=== PATIENT | female | born 1995 | race Caucasian/White ===

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

== ENCOUNTER → 2017-03-21 | Outpatient (CLI) | payer OTHER ==
[2017-03-21 12:55] LABS: BLOOD UREA NITROGEN 10 mg/dl (7-18); BUN/CREATININE RATIO 12.8 (10-20); CALCIUM 8.9 mg/dl (8.5-10.1); CARBON DIOXIDE 25 mmol/L (21-32); CHLORIDE 105 mmol/L (98-107); CREATININE 0.74 mg/dl (0.60-1.20); GLUCOSE 114 mg/dl (70-99); POTASSIUM 3.9 mmol/L (3.5-5.1); SODIUM 135 mmol/L (136-145)
== END | disposition home or self-care (01) ==
LOC: C.LABPBG 10:56
PROVIDERS: ATTEND Family Medicine
DX: E28.2 Polycystic ovarian syndrome (principal); E16.1 Other hypoglycemia

== ENCOUNTER 2021-01-16 09:10 | Inpatient (IN) ==
[2021-01-16] MEDS ORDERED: SODIUM CHLORIDE 0.9% 1000ML 2,000 ML IV ONE (09:29)
[2021-01-16] MEDS ORDERED: ACETAMINOPHEN 500 MG TAB PO STA (09:30)
[2021-01-16] MEDS ORDERED: dexAMETHasone**PF** 10 MG/ML VIAL IV ONE ×2 (09:32→12:30)
--- NOTE | 2021-01-16 09:32 | Emergency Department Note ---
Impression & Plan COVID-19, Hypoxia ED Provider Note NAME: LUIS NO AGE: 25 SEX: F : 1995 ARRIVES VIA: Walk-In INFORMANT: Patient ED PROVIDER(S): True Petersen DO. CHIEF COMPLAINT: Covid positive and short of breath HPI: Patient is a 25-year-old female who is unvaccinated who presents to the ER for shortness of breath. She notes her symptoms started last Sebastian with nausea and upset stomach. Progressed to a cough as well as loss of taste and smell. She does feel short of breath like she cannot take a deep breath. She was checking her pulse ox at home as she is positive for Covid and was in the 80s. She denies any belly pain, nausea, vomiting, or diarrhea currently. No dysuria, urgency, or frequency. No other exacerbating or remitting factors. She has had persistent fevers for the past 3 to 4 days. ROS: See above HPI for pertinent positives & negatives. A total of 10 systems reviewed and were otherwise negative. PAST MEDICAL HISTORY:See Below PAST SURGICAL HISTORY:See Below FAMILY HISTORY:See Below SOCIAL HISTORY:See Below HOME MEDICATIONS:See Below ALLERGIES:See Below VITALS:See Below PHYSICAL EXAMINATION: GENERAL: Sitting up in bed, alert, with a persistent cough EYE EXAM: normal conjunctiva. PERRL and EOM's grossly intact. OROPHARYNX: no exudate, no erythema, lips, buccal mucosa, and tongue normal and mucous membranes are moist NECK: supple, no nuchal rigidity, no adenopathy, non-tender LUNGS: Clear to auscultation. Normal chest wall mechanics HEART: Tachycardic, S1 normal and S2 normal ABDOMEN: abdomen soft, non-tender, normo-active bowel sounds, no masses, no rebound or guarding. BACK: Back is symmetrical on inspection and there is no deformity, no midline tenderness, no CVA tenderness. SKIN: no rashes and no bruising UPPER EXTREMITIES: upper extremities are grossly normal. LOWER EXTREMITIES: No pitting edema. Calves are equal bilateral NEURO EXAM: Normal sensorium, cranial nerves II-XII grossly intact, normal speech, no gross weakness of arms, no gross weakness of legs. MEDICAL DECISION MAKING: Patient is a 25-year-old female who presents the ER for the above-stated complaint. She is Covid positive. IV was established blood work was obtained. She was hypertensive, tachycardic, and febrile as well as hypoxic. IV was established blood work was obtained. Labs show no significant leukocytosis or anemia. D-dimer was elevated at 1400. BMP with LFTs bilirubin troponin was unremarkable. was negative. Covid was positive. Chest x-ray with bilateral infiltrates. Patient was updated bedside. She was discussed with the hospitalist admitted for further work-up. She was given IV fluids and steroids. Discussed with Pt concerning signs and symptoms to watch out for. Pt was instructed to follow up with their PCP and discussed with the patient their option to return to the ED at anytime for persistent or worsening symptoms. The appropriate anticipatory guidance and out-patient management, including indications for return to the emergency department, were explained at length to the patient and understood. Triage Nursing notes reviewed. Limited review of prior medical records performed Vital Signs: reviewed and remarkable for tachycardic, febrile and hypoxic Differential diagnosis: Differential diagnoses includes but is not limited to pneumonia, bronchitis, COPD/Asthma exacerbation, pneumothorax, pulmonary embolism, congestive heart failure, acute coronary syndrome ER treatment provided: See below Diagnostics interpreted by me: ECG: Sinus tachycardia rate of 118 Normal axis T wave inversion in the inferior leads QTC 423 Cardiac Monitoring: An order was placed for continuous cardiac monitoring. The monitor shows a rate of 121 with sinus rhythm. Laboratory studies: As stated above and show below. Imaging studies: Chest x-ray with bilateral infiltrates Consultation(s): Discussed with Dr. Jeff Mosqueda for further evaluation Procedures: none Critical Care: I have personally spent 33 minutes of critical care time in the direct management of this patient. This includes bedside care, interpretation of diagnostic studies, and testing, discussion with consultants, patient, and family members, and other required patient management activities. This 33 minutes is in excess of all separately billable procedures. Past Med/Surg History Medical History Asthma Depression with anxiety Heartburn Migraine PCOS (polycystic ovarian syndrome) Prediabetes Vitamin D deficiency Surgical History H/O wisdom tooth extraction Family History Grandfather (Paternal) Colorectal cancer Father , 2019 Hypertrophic cardiomyopathy Hypertension Mother Anxiety Migraine Dyslipidemia Grandmother (Paternal) Graves disease Other Asthma Clotting disorder Diabetes Denies family history of Ovarian cancer Breast cancer Uterine cancer Social History Smoking Status: Never smoker Tobacco Type: E-cigarettes / Vaping Age Started Using Tobacco: 24; Age Quit Using Tobacco: 24; Cigarettes Per Day: vaped for a few months; Second Hand Exposure: No; Hx Alcohol Use: Yes Alcohol type: beer and hard liquor Alcohol Intake Frequency: 2-4 x/Month Hx Substance Use: No Preferred Language: [place] Visual Impairment: No Limitations Hearing Ability: Normal Recruiter Specialist Required: No Beliefs That Will Affect Care: None marital status: Single Current Living Situation: Significant Other current occupational status: employed current occupation: [employer] How many Children do You have: 0 Feels Safe at Home: Yes Childhood Exposure to Second-Hand Smoke: No Diet Comment: does not follow a diet caffeine: Yes (sometimes) during the past year weight has: remained stable Dental Care, Regularly: No Physical Activity Frequency: 3-4 Times per Week Seatbelt Use: always Sunscreen Use: No Allergies Allergies Allergy/AdvReac Type Severity Reaction Status Date / Time No Known Allergies Allergy Verified 01/16/21 10:48 Home Meds Home Medications Medication Instructions Recorded Confirmed No Known Home Medications 01/16/21 01/16/21 Results & Data (ED) Vital Signs Vital Signs - 24 hr 01/16/21 09:13 01/16/21 09:46 01/16/21 09:51 Temperature 39.0 C H 39.4 C H Temperature Source Oral Oral Pulse Rate 133 H 118 H Pulse Rate [Apical] 119 H Pulse Rhythm Regular Regular Pulse Rhythm [Apical] Regular Pulse Strength Normal Pulse Strength [Apical] Normal Respiratory Rate 20 20 Respiratory Effort / Characteristics Non-Labored Spontaneous Non-Labored Spontaneous Respiratory Depth Normal Normal Respiratory Pattern Regular Regular Blood Pressure 137/84 Blood Pressure [Right Arm] 119/77 Blood Pressure Mean 101 Blood Pressure Mean [Right Arm] 91 Blood Pressure Position Sitting Blood Pressure Position [Right Arm] Semi-fowlers Pulse Oximetry 89 L 87 L 95 Oxygen Delivery Method Room Air Room Air Nasal Cannula Nasal Cannula Oxygen Flow Rate 0 3 Sepsis Recent Fever Within 48 Hours Yes Sepsis New/Unexplained Change in Mental Status No Sepsis Action Taken by Nursing Physician Notified Oxygen Flow Rate - Titration 3 Pulse Oximetry Post Tiitration 95 01/16/21 10:42 01/16/21 12:07 Temperature Temperature Source Pulse Rate Pulse Rate [Apical] 124 H Pulse Rhythm Pulse Rhythm [Apical] Regular Pulse Strength Pulse Strength [Apical] Normal Respiratory Rate 22 Respiratory Effort / Characteristics Non-Labored Spontaneous Non-Labored Spontaneous Respiratory Depth Normal Normal Respiratory Pattern Regular Regular Blood Pressure Blood Pressure [Right Arm] 155/87 H Blood Pressure Mean Blood Pressure Mean [Right Arm] 109 Blood Pressure Position Blood Pressure Position [Right Arm] Sitting Pulse Oximetry 94 Oxygen Delivery Method Nasal Cannula Nasal Cannula Oxygen Flow Rate 3 4 Sepsis Recent Fever Within 48 Hours Sepsis New/Unexplained Change in Mental Status Sepsis Action Taken by Nursing Oxygen Flow Rate - Titration Pulse Oximetry Post Tiitration Laboratory Data Result diagrams: 01/16/21 10:07 01/16/21 10:07 Lab Results 01/16/21 01/16/21 01/16/21 Range/Units 10:07 10:07 10:07 WBC 5.64 (4.8-10.8) K/uL RBC 4.78 (4.2-5.4) M/uL Hgb 14.2 (12.0-16.0) g/dL Hct 40.9 (37-47) % MCV 85.6 (80-100) fL MCH 29.7 (25-34) pg MCHC 34.7 (32-36) g/dL RDW Std Deviation 41.9 (36.4-46.3) fL RDW Coeff of Erasmo 13.2 (11.5-14.5) % Plt Count 169 (130-400) K/uL MPV 10.5 H (7.4-10.4) fL Immature Gran % (Auto) 0.5 % Neut % (Auto) 81.0 % Lymph % (Auto) 15.1 % Sandoval % (Auto) 3.2 % Eos % (Auto) 0.0 % Baso % (Auto) 0.2 % Neut # (Auto) 4.57 (1.4-6.5) K/uL Lymph # (Auto) 0.85 L (1.2-3.4) K/uL Sandoval # (Auto) 0.18 (0.11-0.59) K/uL Eos # (Auto) 0.00 (0-0.5) K/uL Baso # (Auto) 0.01 (0-0.2) K/uL Immature Gran # (Auto) 0.03 H (0.00-0.02) K/uL APTT 28.8 (21.0-31.0) Seconds PTT Ratio 1.1 D-Dimer (0-500) ug/L FEU Sodium 136 (136-145) mmol/L Potassium 3.9 (3.5-5.1) mmol/L Chloride 102 (98-107) mmol/L Carbon Dioxide 25 (21-32) mmol/L Anion Gap 9.0 (3-11) BUN 8 (7-18) mg/dl Creatinine 0.70 (0.6-1.2) mg/dl Est Cr Clr Drug Dosing 121.6 ml/min Est GFR ( Amer) 141.5 ml/min Est GFR (Non-Af Amer) 122.1 ml/min BUN/Creatinine Ratio 11.1 (10-20) Glucose 147 H (70-99) mg/dl Calcium 8.6 (8.5-10.1) mg/dl Total Bilirubin 0.3 (0.2-1) mg/dl AST 24 (15-37) U/L ALT 33 (12-78) U/L Alkaline Phosphatase 92 (45-117) U/L Troponin I < 0.015 (0-0.045) ng/ml C-Reactive Protein (0-0.29) mg/dl Total Protein 7.4 (6.4-8.2) gm/dl Albumin 3.4 (3.4-5.0) gm/dl Globulin 4.0 (2.5-4.0) gm/dl Albumin/Globulin Ratio 0.8 L (0.9-2) Lipase 157 (73-393) U/L POC Ur Test (NEG) COVID-19 Eval Order SARS-CoV-2 (PCR) (Negative) 01/16/21 01/16/21 01/16/21 Range/Units 10:07 10:07 10:07 WBC (4.8-10.8) K/uL RBC (4.2-5.4) M/uL Hgb (12.0-16.0) g/dL Hct (37-47) % MCV (80-100) fL MCH (25-34) pg MCHC (32-36) g/dL RDW Std Deviation (36.4-46.3) fL RDW Coeff of Erasmo (11.5-14.5) % Plt Count (130-400) K/uL MPV (7.4-10.4) fL Immature Gran % (Auto) % Neut % (Auto) % Lymph % (Auto) % Sandoval % (Auto) % Eos % (Auto) % Baso % (Auto) % Neut # (Auto) (1.4-6.5) K/uL Lymph # (Auto) (1.2-3.4) K/uL Sandoval # (Auto) (0.11-0.59) K/uL Eos # (Auto) (0-0.5) K/uL Baso # (Auto) (0-0.2) K/uL Immature Gran # (Auto) (0.00-0.02) K/uL APTT (21.0-31.0) Seconds PTT Ratio D-Dimer (0-500) ug/L FEU Sodium (136-145) mmol/L Potassium (3.5-5.1) mmol/L Chloride (98-107) mmol/L Carbon Dioxide (21-32) mmol/L Anion Gap (3-11) BUN (7-18) mg/dl Creatinine (0.6-1.2) mg/dl Est Cr Clr Drug Dosing ml/min Est GFR ( Amer) ml/min Est GFR (Non-Af Amer) ml/min BUN/Creatinine Ratio (10-20) Glucose (70-99) mg/dl Calcium (8.5-10.1) mg/dl Total Bilirubin (0.2-1) mg/dl AST (15-37) U/L ALT (12-78) U/L Alkaline Phosphatase (45-117) U/L Troponin I (0-0.045) ng/ml C-Reactive Protein 11.30 H (0-0.29) mg/dl Total Protein (6.4-8.2) gm/dl Albumin (3.4-5.0) gm/dl Globulin (2.5-4.0) gm/dl Albumin/Globulin Ratio (0.9-2) Lipase (73-393) U/L POC Ur Test (NEG) COVID-19 Eval Order Covid19 at [facility] SARS-CoV-2 (PCR) POSITIVE A* (Negative) 01/16/21 01/16/21 Range/Units 11:55 12:05 WBC (4.8-10.8) K/uL RBC (4.2-5.4) M/uL Hgb (12.0-16.0) g/dL Hct (37-47) % MCV (80-100) fL MCH (25-34) pg MCHC (32-36) g/dL RDW Std Deviation (36.4-46.3) fL RDW Coeff of Erasmo (11.5-14.5) % Plt Count (130-400) K/uL MPV (7.4-10.4) fL Immature Gran % (Auto) % Neut % (Auto) % Lymph % (Auto) % Sandoval % (Auto) % Eos % (Auto) % Baso % (Auto) % Neut # (Auto) (1.4-6.5) K/uL Lymph # (Auto) (1.2-3.4) K/uL Sandoval # (Auto) (0.11-0.59) K/uL Eos # (Auto) (0-0.5) K/uL Baso # (Auto) (0-0.2) K/uL Immature Gran # (Auto) (0.00-0.02) K/uL APTT (21.0-31.0) Seconds PTT Ratio D-Dimer 1450 H* (0-500) ug/L FEU Sodium (136-145) mmol/L Potassium (3.5-5.1) mmol/L Chloride (98-107) mmol/L Carbon Dioxide (21-32) mmol/L Anion Gap (3-11) BUN (7-18) mg/dl Creatinine (0.6-1.2) mg/dl Est Cr Clr Drug Dosing ml/min Est GFR ( Amer) ml/min Est GFR (Non-Af Amer) ml/min BUN/Creatinine Ratio (10-20) Glucose (70-99) mg/dl Calcium (8.5-10.1) mg/dl Total Bilirubin (0.2-1) mg/dl AST (15-37) U/L ALT (12-78) U/L Alkaline Phosphatase (45-117) U/L Troponin I (0-0.045) ng/ml C-Reactive Protein (0-0.29) mg/dl Total Protein (6.4-8.2) gm/dl Albumin (3.4-5.0) gm/dl Globulin (2.5-4.0) gm/dl Albumin/Globulin Ratio (0.9-2) Lipase (73-393) U/L POC Ur Test NEG (NEG) COVID-19 Eval Order SARS-CoV-2 (PCR) (Negative) Administered Medications Remdesivir 200 mg/ Sodium (Chloride) 250 mls @ 125 mls/hr IV ONE ONE; Protocol Stop: 01/16/21 13:44 Last Admin: 01/16/21 12:00 Dose: 125 mls/hr Documented by: [id number] Discontinued Medications Acetaminophen (Acetaminophen 500 Mg Tab) 1,000 mg PO NOW STA Stop: 01/16/21 09:31 Last Admin: 01/16/21 10:28 Dose: 1,000 mg Documented by: [id number] Dexamethasone Sodium Phosphate (DexamethasonePf 10 Mg/Ml Vial) 6 mg IV NOW ONE Stop: 01/16/21 09:33 Last Admin: 01/16/21 10:29 Dose: 6 mg Documented by: [id number] Sodium Chloride (Nss 1000ml) 2,000 mls @ 999 mls/hr IV .Q2H1M ONE Stop: 01/16/21 11:29 Last Infusion: 01/16/21 12:42 Dose: 0 mls/hr Documented by: [id number] Admin: 01/16/21 10:25 Dose: 999 mls/hr Documented by: [id number] Imaging Data Radiologist's Impression: Chest X-Ray 01/16/21 09:29 XR chest 1V portable INDICATION: Atypical chest pain, history of pneumonia.. TECHNIQUE: Single frontal radiograph of the chest was obtained. Comparison: Comparison is made to chest 2 views 01/15/2021 FINDINGS: No lines and tubes are seen. The cardiomediastinal silhouette is normal. Redemonstration of airspace opacities in the right upper lobe. Left greater than right lung base airspace opacities are increased from prior exam. No evidence of pleural effusion or pneumothorax. IMPRESSION: Interval worsening of previously noted airspace opacities compatible with multifocal pneumonia. ACT 112: Negative or not required by law. Electronically signed by: Genaro Arceo M.D. 01/16/2021 10:27 AM Discharge Plan Visit Data Chief Complaint: Shortness of Breath/Dyspnea Stated Complaint: COVID POSITIVE,SX WORSENING,OXYGEN LEVEL LOW ED Provider: True Petersen Discharge Problem: COVID-19, Hypoxia Forms Stand Alone Forms: My [employer] Prescriptions Prescriptions: No Action No Known Home Medications RF: 0 Referrals Referrals: Marni Haley DO [Primary Care Provider] -
[2021-01-16 10:17] LABS: Basophils # (auto) 0.01 K/uL (0-0.2); Basophils % (auto) 0.2 %; Hematocrit (blood only) 40.9 % (37-47); Hemoglobin 14.2 g/dL (12.0-16.0); Immature Granulocytes # (auto) 0.03 K/uL (0.00-0.02); Immature Granulocytes % (auto) 0.5 %; Lymphocytes # (auto) 0.85 K/uL (1.2-3.4); Lymphocytes % (auto) 15.1 %; Mean Corpuscular Hemoglobin 29.7 pg (25-34); Mean Corpuscular Hgb Conc 34.7 g/dL (32-36); Mean Corpuscular Volume 85.6 fL (80-100); Mean Platelet Volume 10.5 fL (7.4-10.4); Monocytes # (auto) 0.18 K/uL (0.11-0.59); Monocytes % (auto) 3.2 %; Neutrophils # (auto) 4.57 K/uL (1.4-6.5); Platelet Count 169 K/uL (130-400); RDW Coefficient of Variation 13.2 % (11.5-14.5); RDW Standard Deviation 41.9 fL (36.4-46.3); Red Blood Count 4.78 M/uL (4.2-5.4); White Blood Count 5.64 K/uL (4.8-10.8)
[2021-01-16 10:28] LABS: Partial Thromboplastin Ratio 1.1; Partial Thromboplastin Time 28.8 Seconds (21.0-31.0)
--- NOTE | 2021-01-16 10:28 | XRay Report ---
XR chest 1V portable INDICATION: Atypical chest pain, history of pneumonia.. TECHNIQUE: Single frontal radiograph of the chest was obtained. Comparison: Comparison is made to chest 2 views 01/15/2021 FINDINGS: No lines and tubes are seen. The cardiomediastinal silhouette is normal. Redemonstration of airspace opacities in the right upper lobe. Left greater than right lung base airspace opacities are increased from prior exam. No evidence of pleural effusion or pneumothorax. IMPRESSION: Interval worsening of previously noted airspace opacities compatible with multifocal pneumonia. ACT 112: Negative or not required by law. Electronically signed by: Genaro Arcoe M.D. 01/16/2021 10:27 AM
[2021-01-16 10:39] LABS: Alanine Aminotransferase 33 U/L (12-78); Albumin Level 3.4 gm/dl (3.4-5.0); Aspartate Aminotransferase 24 U/L (15-37); BUN Creatinine Ratio 11.1 (10-20); Blood Urea Nitrogen 8 mg/dl (7-18); Calcium 8.6 mg/dl (8.5-10.1); Carbon Dioxide 25 mmol/L (21-32); Chloride 102 mmol/L (98-107); Creatinine Clr Calc Pharmacy 121.6 ml/min; Est GFR (African American) 141.5 ml/min; Est GFR (Non-African American) 122.1 ml/min; Glucose 147 mg/dl (70-99); Lipase 157 U/L (73-393); Potassium 3.9 mmol/L (3.5-5.1); Sodium 136 mmol/L (136-145)
[2021-01-16 10:44] LABS: Albumin Globulin Ratio 0.8 (0.9-2); Alkaline Phosphatase 92 U/L (45-117); Bilirubin,Total 0.3 mg/dl (0.2-1); Total Protein 7.4 gm/dl (6.4-8.2); Troponin I < 0.015 ng/ml (0-0.045)
--- NOTE | 2021-01-16 10:55 | History & Physical Report ---
Date of Service January 16, 2021 Assessment & Plan (1) COVID-19: Plan: Stop IV fluids Dexamethasone 6mg IV daily (insulin to over for hyperglycemia, will order NPH if continually needs coverage) Although limited evidence, given young age, continued fevers, hypoxia, onset symptoms < 10 days, would favor starting remdesivir CRP, d-dimer and Procalcitonin added to labs (2) Hypoxia: Plan: Secondary to COVID-19 pneumonia Slight lobar appearance on CT concerning for secondary bacterial infection Aim O2 sats > 94% (3) Vitamin D deficiency: Plan: Prior level 12.7 ng/ml in June One dose D2 50,000 units now, then start D3 1000 units daily (4) PCOS (polycystic ovarian syndrome): Plan: On no medication for this Plan: VTE prophylaxis - d-dimer pending to determine Lovenox once daily vs. BID dosing Diet - regular Disposition - admit to med/tele History of Present Illness Chief Complaint: COVID-19 Symptoms Primary Care Provider: DO Leslie Saleh Bowen is a 25 year old female with PCOS who presents to the ER with hypoxia and shortness of breath. COVID-19 symptoms started with stomach upset and diarrhea on January 08. Currently on Day 9 of illness. Diarrhea now resolved. Cough is now more productive, ongoing fever and chills, headache and progressively worsening shortness of breath on exertion. She started to loose taste and smell 2 days ago. She was initially seen at urgent care and diagnosed January 10 and was reportedly started on azithromycin and prednisone starting on Monday. She was seen in the ER yesterday and was told to stop taking these but given 1L NSS bolus and albuterol. She was discharged as O2 sats 97% on room air. She returns today as O2 sats decreased to mid 80s at rest. She was referred to medicine for admission and ongoing management of COVID-19 pneumonia and hypoxia. Allergies Allergy/AdvReac Type Severity Reaction Status Date / Time No Known Allergies Allergy Verified 01/16/21 10:48 Home Medications Medication Instructions Recorded Confirmed Type No Known Home Medications 01/16/21 01/16/21 History Past Med/Surg History Medical History Asthma Depression with anxiety Heartburn Migraine PCOS (polycystic ovarian syndrome) Prediabetes Vitamin D deficiency Surgical History H/O wisdom tooth extraction Family History Grandfather (Paternal) Colorectal cancer Father , 2019 Hypertrophic cardiomyopathy Hypertension Mother Anxiety Migraine Dyslipidemia Grandmother (Paternal) Graves disease Other Asthma Clotting disorder Diabetes Denies family history of Ovarian cancer Breast cancer Uterine cancer Social History Smoking Status: Never smoker Tobacco Type: E-cigarettes / Vaping Age Started Using Tobacco: 24; Age Quit Using Tobacco: 24; Cigarettes Per Day: vaped for a few months; Second Hand Exposure: No; Hx Alcohol Use: Yes Alcohol type: beer and hard liquor Alcohol Intake Frequency: 2-4 x/Month Hx Substance Use: No Preferred Language: Lao Visual Impairment: No Limitations Hearing Ability: Normal Barber Apprentice Required: No Beliefs That Will Affect Care: None marital status: Single Current Living Situation: Significant Other current occupational status: employed 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 How many Children do You have: 0 Feels Safe at Home: Yes Childhood Exposure to Second-Hand Smoke: No Diet Comment: does not follow a diet caffeine: Yes (sometimes) during the past year weight has: remained stable Dental Care, Regularly: No Physical Activity Frequency: 3-4 Times per Week Seatbelt Use: always Sunscreen Use: No Review of Systems Review of Systems: All systems reviewed & are unremarkable except as noted in HPI & below Physical Exam Constitutional: WD/WN, vitals as above + obese; no acute distress Eyes: + anicteric sclerae; normal pupil size ENMT: external ear and nose normal, oropharynx normal Neck: trachea midline, no thyromegaly Respiratory: normal respiratory effort, lungs clear to auscultation Cardiovascular: Rate/Rhythm: regular rhythm and + tachycardic Heart Sounds: no murmur Extremities: normal capillary refill; no calf tenderness and no pedal edema Gastrointestinal (Abdomen): normal bowel sounds, soft, nontender, no hepatosplenomegaly Musculoskeletal: no cyanosis or clubbing, extremities motor strength 5/5 Skin: no rashes, warm and dry Neurologic: moves all extremities and awake; not confused Psychiatric: A+Ox3, euthymic affect Lymphatic: no cervical or axillary lymphadenopathy Results & Data Results & Data ([facility]) Vital Signs (Past 12 Hours) Vital Signs Temp Pulse Pulse Resp BP BP Pulse Ox 01/16/21 09:51 39.4 C H 118 H 119 H 20 119/77 95 01/16/21 09:46 87 L 01/16/21 09:13 39.0 C H 133 H 20 137/84 89 L Laboratory Results Abnormal lab results 01/16/21 01/16/21 Range/Units 10:07 10:07 MPV 10.5 H (7.4-10.4) fL Lymph # (Auto) 0.85 L (1.2-3.4) K/uL Immature Gran # (Auto) 0.03 H (0.00-0.02) K/uL Glucose 147 H (70-99) mg/dl Albumin/Globulin Ratio 0.8 L (0.9-2) Diagnostic Findings XR chest 1V portable INDICATION: Atypical chest pain, history of pneumonia.. TECHNIQUE: Single frontal radiograph of the chest was obtained. Comparison: Comparison is made to chest 2 views 01/15/2021 FINDINGS: No lines and tubes are seen. The cardiomediastinal silhouette is normal. Redemonstration of airspace opacities in the right upper lobe. Left greater than right lung base airspace opacities are increased from prior exam. No evidence of pleural effusion or pneumothorax. IMPRESSION: Interval worsening of previously noted airspace opacities compatible with mu ltifocal pneumonia. Medications Administered ER Medications Given: Acetaminophen 1000mg PO stat Dexamethasone 6mg IV NSS 2L bolus ordered but stopped by myself after approximately 100ml given ECG Indication: tachycardia Rate (beats per minute): 115 Findings: + other (Non-specific T wave abnormality in inferior leads) Comparison ECG Date: from (August 03, 2020) Change: no significant change Code Status & VTE Plan Code Status Full VTE Prophylaxis Plan VTE Prophylaxis will be ordered: Yes PG Care Time/CCT Total # of Minutes Spent Total Time Spent with Patient: Total time spent is greater than 50% in coordination of care (as documented) at patient's floor/unit and/or counseling patient: Coding Level of Care Code 62737 Initial Inpt Care Lvl 2 Diagnoses COVID-19 U07.1 Vitamin D deficiency E55.9 Hypoxia R09.02 PCOS (polycystic ovarian syndrome) E28.2
[2021-01-16] MEDS ORDERED: REMDESIVIR 200 MG in SODIUM CHLORIDE 0.9% 210 ML IV ONE (11:45)
[2021-01-16] MEDS ORDERED: dexAMETHasone 4 MG in SYRINGE 0 ML IV STA (12:05)
[2021-01-16 12:30] LABS: D Dimer 1450 ug/L FEU (0-500)
[2021-01-16] MEDS ORDERED: SODIUM CHLORIDE 0.9% 10ML FLUSH IV SCH (13:45)
[2021-01-16] MEDS ORDERED: GLUCOSE 10 TABS/TUBE PO PRN (14:07)
[2021-01-16] MEDS ORDERED: GLUCAGON FOR INJ 1 MG VIAL SQ PRN (14:07)
[2021-01-16] MEDS ORDERED: ACETAMINOPHEN 325 MG TAB PO PRN (14:07)
[2021-01-16] MEDS ORDERED: GLUCOSE 40% GEL 15 GM TUBE PO PRN (14:07)
[2021-01-16] MEDS ORDERED: ALUMINUM/MAGNESIUM SUSP 30 ML UDC PO PRN (14:07)
[2021-01-16] MEDS ORDERED: DEXTROSE 50% 50 ML SYRINGE IV PRN (14:07)
[2021-01-16] MEDS ORDERED: ONDANSETRON INJ 2 MG/ML 2 ML VIAL IV PRN (14:07)
[2021-01-16] MEDS ORDERED: CARBOHYDRATES FOR HYPOGLYCEMIA PO PRN (14:07)
[2021-01-16] MEDS ORDERED: POLYETHYLENE (MIRALAX) 17 GM PACK PO PRN (14:07)
[2021-01-16] MEDS ORDERED: ERGOCALCIFEROL 50,000 UNITS 1250 MCG CAP PO ONE (14:30)
[2021-01-16] MEDS: CHOLECALCIFEROL 1,000 UNITS 25 MCG TAB PO SCH (15:51)
[2021-01-16] MEDS ORDERED: COUGH DROP (SUGAR FREE) LOZ 24 LOZ/1 BOX BUCCAL STA (15:53)
[2021-01-16] MEDS: INSULIN ASPART 100 UNITS/ML 3 ML PEN SC SCH ×3 (16:26→21:25)
[2021-01-16] MEDS ORDERED: PHARMACY GLYCEMIC MGMT CONSULT PRN (18:36)
[2021-01-17] MEDS: INSULIN ASPART 100 UNITS/ML 3 ML PEN SC SCH ×6 (00:15→20:42)
[2021-01-17 07:33] LABS: Hematocrit (blood only) 42.3 % (37-47); Hemoglobin 14.4 g/dL (12.0-16.0); Immature Granulocytes # (auto) 0.02 K/uL (0.00-0.02); Immature Granulocytes % (auto) 0.3 %; Lymphocytes # (auto) 0.95 K/uL (1.2-3.4); Lymphocytes % (auto) 16.2 %; Mean Corpuscular Hemoglobin 29.4 pg (25-34); Mean Corpuscular Volume 86.5 fL (80-100); Mean Platelet Volume 10.9 fL (7.4-10.4); Monocytes # (auto) 0.17 K/uL (0.11-0.59); Monocytes % (auto) 2.9 %; Neutrophils # (auto) 4.72 K/uL (1.4-6.5); Neutrophils % (auto) 80.6 %; Platelet Count 205 K/uL (130-400); RDW Coefficient of Variation 13.1 % (11.5-14.5); RDW Standard Deviation 41.7 fL (36.4-46.3); Red Blood Count 4.89 M/uL (4.2-5.4); White Blood Count 5.86 K/uL (4.8-10.8)
[2021-01-17] MEDS: dexAMETHasone 6 MG in SYRINGE 0 ML IV SCH (07:50)
[2021-01-17] MEDS: CHOLECALCIFEROL 1,000 UNITS 25 MCG TAB PO SCH (07:50)
[2021-01-17] MEDS ORDERED: ENOXAPARIN 0.5 MG/KG SQ SCH (08:00)
[2021-01-17 08:08] LABS: Albumin Level 3.1 gm/dl (3.4-5.0); BUN Creatinine Ratio 16.4 (10-20); Calcium 8.8 mg/dl (8.5-10.1); Est GFR (African American) 148.9 ml/min; Est GFR (Non-African American) 128.5 ml/min
[2021-01-17 08:11] LABS: Albumin Globulin Ratio 0.7 (0.9-2); Bilirubin,Total 0.3 mg/dl (0.2-1); Globulin 4.2 gm/dl (2.5-4.0); Total Protein 7.3 gm/dl (6.4-8.2)
--- NOTE | 2021-01-17 08:50 | Hospitalist Progress Note ---
Date of Service January 17, 2021 Assessment & Plan (1) COVID-19: Plan: oxygen requirements are less today, very compliant with prone position down to 4L on her stomach continue dexamethasone 6mg IV daily, day 2 Remdesivir x 5 days, day 2 flutter valve, incentive spirometer cough syrup CRP is 11 but she is not requiring high flow nasal canula, no need for baricitinib at this point check CRP tomorrow, if her oxygen requirements go up dramatically then consult pulmonary to consider baricitinib (2) Hypoxia: Plan: Secondary to COVID-19 pneumonia currently she is improving, down to 4L from 7L this morning she is very compliant with prone positioning titrate down as tolerated consider low dose Lasix tomorrow to keep neg fluid balance (3) Vitamin D deficiency: Plan: Prior level 12.7 ng/ml in June One dose D2 50,000 units on admission, continue D3 1000 units daily (4) PCOS (polycystic ovarian syndrome): Plan: On no medication for this Plan: VTE prophylaxis - Lovenox 40 BID Diet - regular Disposition - admit to med/tele Admission and Anticipated Discharge Date Admission Date: January 16, 2021 Subjective patient laying prone, breathing easier, down to 4L this afternoon she says she has been sick for about 9 days admits she feels better on oxygen, she was monitoring her oxygen at home and it was in the 80's when she came in eating okay, no further diarrhea, no fever for days reviewed the chart reviewed labs updated her mother Araceli over the phone discussed that she will be here several days to a week Review of Systems Review of Systems: All systems reviewed & are unremarkable except as noted in Subjective Constitutional: no fever, no chills, no sweats, no fatigue and no weakness Respiratory: + cough, + dyspnea and + dyspnea on exertion Cardiovascular: no chest pain and no edema Gastrointestinal: no abdominal pain, no nausea, no vomiting, no constipation and no diarrhea/loose stools Psychiatric: + anxiety (mild, worried if she is going to be okay) Physical Exam Physical Exam: General: well developed, well nourished, overweight, ill appearing, no distress Neck: supple, trachea midline, normal thyroid Lungs: some diffuse crackles in bases, normal respiratory effort, no accessory muscle use, no distress Heart: S1 and S2, tachycardic no murmur, peripheral pulses normal, capillary refill normal, no edema Abdomen: soft, NT, ND, + BS, no hepatomegaly, normal to percussion Extremities: normal in appearance, no cyanosis, no petechiae, strength is 5/5 bilaterally Neuro: awake, cooperative, moves all extremities, no focal motor deficits, CN II-XII intact, sensation in extremities intact, normal speech Skin: warm, dry, no rash, normal turgor Psych: Awake, alert oriented x 3, slightly anxious affect Results & Data Results & Data ([facility]) Vital Signs (Past 12 Hours) Vital Signs Temp Pulse Pulse Resp BP Pulse Ox 01/17/21 07:56 37.3 C 108 H 20 113/84 88 L 01/17/21 03:59 37.0 C 96 H 19 122/76 92 01/16/21 23:42 36.7 C 102 H 19 118/74 93 01/16/21 22:25 102 H Laboratory Results Laboratory Results - last 24 hr 01/16/21 01/16/21 01/16/21 10:07 10:07 10:07 WBC 5.64 RBC 4.78 Hgb 14.2 Hct 40.9 MCV 85.6 MCH 29.7 MCHC 34.7 RDW Std Deviation 41.9 RDW Coeff of Erasmo 13.2 Plt Count 169 MPV 10.5 H Immature Gran % (Auto) 0.5 Neut % (Auto) 81.0 Lymph % (Auto) 15.1 Major % (Auto) 3.2 Eos % (Auto) 0.0 Baso % (Auto) 0.2 Neut # (Auto) 4.57 Lymph # (Auto) 0.85 L Major # (Auto) 0.18 Eos # (Auto) 0.00 Baso # (Auto) 0.01 Immature Gran # (Auto) 0.03 H APTT 28.8 PTT Ratio 1.1 D-Dimer Sodium 136 Potassium 3.9 Chloride 102 Carbon Dioxide 25 Anion Gap 9.0 BUN 8 Creatinine 0.70 Est Cr Clr Drug Dosing 121.6 Est GFR ( Amer) 141.5 Est GFR (Non-Af Amer) 122.1 BUN/Creatinine Ratio 11.1 Glucose 147 H POC Glucose Estimat Average Glucose Hemoglobin A1c Calcium 8.6 Total Bilirubin 0.3 AST 24 ALT 33 Alkaline Phosphatase 92 Troponin I < 0.015 C-Reactive Protein Total Protein 7.4 Albumin 3.4 Globulin 4.0 Albumin/Globulin Ratio 0.8 L Lipase 157 Procalcitonin POC Ur Test COVID-19 Eval Order SARS-CoV-2 (PCR) 01/16/21 01/16/21 01/16/21 10:07 10:07 10:07 WBC RBC Hgb Hct MCV MCH MCHC RDW Std Deviation RDW Coeff of Erasmo Plt Count MPV Immature Gran % (Auto) Neut % (Auto) Lymph % (Auto) Major % (Auto) Eos % (Auto) Baso % (Auto) Neut # (Auto) Lymph # (Auto) Major # (Auto) Eos # (Auto) Baso # (Auto) Immature Gran # (Auto) APTT PTT Ratio D-Dimer Sodium Potassium Chloride Carbon Dioxide Anion Gap BUN Creatinine Est Cr Clr Drug Dosing Est GFR ( Amer) Est GFR (Non-Af Amer) BUN/Creatinine Ratio Glucose POC Glucose Estimat Average Glucose Hemoglobin A1c Calcium Total Bilirubin AST ALT Alkaline Phosphatase Troponin I C-Reactive Protein 11.30 H Total Protein Albumin Globulin Albumin/Globulin Ratio Lipase Procalcitonin POC Ur Test COVID-19 Eval Order Covid19 at [facility] SARS-CoV-2 (PCR) POSITIVE A* 01/16/21 01/16/21 01/16/21 11:55 11:55 12:05 WBC RBC Hgb Hct MCV MCH MCHC RDW Std Deviation RDW Coeff of Erasmo Plt Count MPV Immature Gran % (Auto) Neut % (Auto) Lymph % (Auto) Major % (Auto) Eos % (Auto) Baso % (Auto) Neut # (Auto) Lymph # (Auto) Major # (Auto) Eos # (Auto) Baso # (Auto) Immature Gran # (Auto) APTT PTT Ratio D-Dimer 1450 H* Sodium Potassium Chloride Carbon Dioxide Anion Gap BUN Creatinine Est Cr Clr Drug Dosing Est GFR ( Amer) Est GFR (Non-Af Amer) BUN/Creatinine Ratio Glucose POC Glucose Estimat Average Glucose Hemoglobin A1c Calcium Total Bilirubin AST ALT Alkaline Phosphatase Troponin I C-Reactive Protein Total Protein Albumin Globulin Albumin/Globulin Ratio Lipase Procalcitonin < 0.05 POC Ur Test NEG COVID-19 Eval Order SARS-CoV-2 (PCR) 01/16/21 01/16/21 01/16/21 15:10 16:33 17:28 WBC RBC Hgb Hct MCV MCH MCHC RDW Std Deviation RDW Coeff of Erasmo Plt Count MPV Immature Gran % (Auto) Neut % (Auto) Lymph % (Auto) Major % (Auto) Eos % (Auto) Baso % (Auto) Neut # (Auto) Lymph # (Auto) Major # (Auto) Eos # (Auto) Baso # (Auto) Immature Gran # (Auto) APTT PTT Ratio D-Dimer Sodium Potassium Chloride Carbon Dioxide Anion Gap BUN Creatinine Est Cr Clr Drug Dosing Est GFR ( Amer) Est GFR (Non-Af Amer) BUN/Creatinine Ratio Glucose POC Glucose 216 H 269 H 230 H Estimat Average Glucose Hemoglobin A1c Calcium Total Bilirubin AST ALT Alkaline Phosphatase Troponin I C-Reactive Protein Total Protein Albumin Globulin Albumin/Globulin Ratio Lipase Procalcitonin POC Ur Test COVID-19 Eval Order SARS-CoV-2 (PCR) 01/16/21 01/17/21 01/17/21 20:40 00:12 04:05 WBC RBC Hgb Hct MCV MCH MCHC RDW Std Deviation RDW Coeff of Erasmo Plt Count MPV Immature Gran % (Auto) Neut % (Auto) Lymph % (Auto) Major % (Auto) Eos % (Auto) Baso % (Auto) Neut # (Auto) Lymph # (Auto) Major # (Auto) Eos # (Auto) Baso # (Auto) Immature Gran # (Auto) APTT PTT Ratio D-Dimer Sodium Potassium Chloride Carbon Dioxide Anion Gap BUN Creatinine Est Cr Clr Drug Dosing Est GFR ( Amer) Est GFR (Non-Af Amer) BUN/Creatinine Ratio Glucose POC Glucose 211 H 175 H 157 H Estimat Average Glucose Hemoglobin A1c Calcium Total Bilirubin AST ALT Alkaline Phosphatase Troponin I C-Reactive Protein Total Protein Albumin Globulin Albumin/Globulin Ratio Lipase Procalcitonin POC Ur Test COVID-19 Eval Order SARS-CoV-2 (PCR) 01/17/21 01/17/21 01/17/21 06:37 06:37 06:37 WBC 5.86 RBC 4.89 Hgb 14.4 Hct 42.3 MCV 86.5 MCH 29.4 MCHC 34.0 RDW Std Deviation 41.7 RDW Coeff of Erasmo 13.1 Plt Count 205 MPV 10.9 H Immature Gran % (Auto) 0.3 Neut % (Auto) 80.6 Lymph % (Auto) 16.2 Major % (Auto) 2.9 Eos % (Auto) 0.0 Baso % (Auto) 0.0 Neut # (Auto) 4.72 Lymph # (Auto) 0.95 L Major # (Auto) 0.17 Eos # (Auto) 0.00 Baso # (Auto) 0.00 Immature Gran # (Auto) 0.02 APTT PTT Ratio D-Dimer Sodium 139 Potassium 4.0 Chloride 104 Carbon Dioxide 27 Anion Gap 9.0 BUN 10 Creatinine 0.60 Est Cr Clr Drug Dosing 146.0 Est GFR ( Amer) 148.9 Est GFR (Non-Af Amer) 128.5 BUN/Creatinine Ratio 16.4 Glucose 167 H POC Glucose Estimat Average Glucose Pending Hemoglobin A1c Pending Calcium 8.8 Total Bilirubin 0.3 AST 21 ALT 32 Alkaline Phosphatase 88 Troponin I C-Reactive Protein Total Protein 7.3 Albumin 3.1 L Globulin 4.2 H Albumin/Globulin Ratio 0.7 L Lipase Procalcitonin POC Ur Test COVID-19 Eval Order SARS-CoV-2 (PCR) 01/17/21 07:55 WBC RBC Hgb Hct MCV MCH MCHC RDW Std Deviation RDW Coeff of Erasmo Plt Count MPV Immature Gran % (Auto) Neut % (Auto) Lymph % (Auto) Major % (Auto) Eos % (Auto) Baso % (Auto) Neut # (Auto) Lymph # (Auto) Major # (Auto) Eos # (Auto) Baso # (Auto) Immature Gran # (Auto) APTT PTT Ratio D-Dimer Sodium Potassium Chloride Carbon Dioxide Anion Gap BUN Creatinine Est Cr Clr Drug Dosing Est GFR ( Amer) Est GFR (Non-Af Amer) BUN/Creatinine Ratio Glucose POC Glucose 156 H Estimat Average Glucose Hemoglobin A1c Calcium Total Bilirubin AST ALT Alkaline Phosphatase Troponin I C-Reactive Protein Total Protein Albumin Globulin Albumin/Globulin Ratio Lipase Procalcitonin POC Ur Test COVID-19 Eval Order SARS-CoV-2 (PCR) Medications Administered Current Inpatient Medications Acetaminophen (Acetaminophen 325 Mg Tab) 650 mg PO Q4H PRN PRN Reason: Pain or Fever Stop: 02/15/21 14:06 Last Admin: 01/16/21 21:26 Dose: 650 mg Documented by: Al Hydrox/Mg Hydrox/Simethicone (Aluminum/Magnesium Susp 30 Ml Udc) 15 ml PO Q4H PRN PRN Reason: Dyspepsia Stop: 02/15/21 14:06 Dextrose (Dextrose 50% 50 Ml Syringe) 25 - 50 ml IV UD PRN; Protocol PRN Reason: Hypoglycemia Protocol Stop: 02/15/21 14:06 Enoxaparin Sodium (Enoxaparin 0.5 Mg/Kg) 40 mg SQ Q12H COLBY Stop: 02/16/21 07:59 Glucagon (Glucagon For Inj 1 Mg Vial) 1 mg SQ UD PRN; Protocol PRN Reason: Hypoglycemia Protocol Stop: 02/15/21 14:06 Glucose (Glucose 10 Tabs/Tube) 4 - 8 tabs PO UD PRN; Protocol PRN Reason: Hypoglycemia Protocol Stop: 02/15/21 14:06 Glucose (Glucose 40% Gel 15 Gm Tube) 15 - 30 gm PO UD PRN; Protocol PRN Reason: Hypoglycemia Protocol Stop: 02/15/21 14:06 Remdesivir 100 mg/ Sodium (Chloride) 250 mls @ 250 mls/hr IV Q24H COLBY; Protocol Stop: 01/20/21 12:59 Dexamethasone 6 mg/ Syringe 1.5 mls @ 1 mls/min IV DAILY COLBY Stop: 01/25/21 09:02 Last Admin: 01/17/21 07:50 Dose: 1 mls/min Documented by: Insulin Aspart (Insulin Aspart 100 Units/Ml 3 Ml Pen) 0 units SC ACHS COLBY Stop: 02/15/21 14:06 Last Admin: 01/16/21 21:25 Dose: 4 units Documented by: Miscellaneous (Carbohydrates For Hypoglycemia ) 15 - 30 gm PO UD PRN PRN Reason: Hypoglycemia Protocol Stop: 02/15/21 14:06 Miscellaneous Information (Pharmacy Glycemic Mgmt Consult) 1 ea N/A UD PRN PRN Reason: Consult Stop: 02/15/21 18:35 Ondansetron HCl (Ondansetron Inj 2 Mg/Ml 2 Ml Vial) 4 mg IV Q6H PRN PRN Reason: Nausea Stop: 02/15/21 14:06 Polyethylene Glycol (Polyethylene (Miralax) 17 Gm Pack) 17 gm PO DAILY PRN PRN Reason: Constipation Stop: 02/15/21 14:06 Sodium Chloride (Sodium Chloride 0.9% 10ml Flush) 30 ml IV Q24H COLBY Stop: 01/20/21 13:01 Vitamin D (Cholecalciferol 1,000 Units 25 Mcg Tab) 1,000 units PO QAM COLBY Stop: 02/15/21 14:29 Last Admin: 01/17/21 07:50 Dose: 1,000 units Documented by: PG Care Time/CCT Total # of Minutes Spent Total Time Spent with Patient: Total time spent is greater than 50% in coordination of care (as documented) at patient's floor/unit and/or counseling patient: Coding Level of Care Code 55407 Subseq Hosp Care Lvl 2 Diagnoses COVID-19 U07.1 Hypoxia R09.02 Vitamin D deficiency E55.9 PCOS (polycystic ovarian syndrome) E28.2
[2021-01-17] MEDS: INSULIN HUMAN NPH SC SCH (10:40)
[2021-01-17] MEDS: ENOXAPARIN INJ 40 MG/0.4 ML SYR SQ SCH ×2 (10:40→20:47)
--- NOTE | 2021-01-17 11:15 | Pharmacy Report ---
Pharmacy Glycemic Short Note 2 - Date of Service January 17, 2021 - Glycemic Short BSG Results (Last 24 hours): 01/16/21 01/16/21 01/16/21 15:10 16:33 17:28 Glucose POC Glucose 216 H 269 H 230 H 01/16/21 01/17/21 01/17/21 20:40 00:12 04:05 Glucose POC Glucose 211 H 175 H 157 H 01/17/21 01/17/21 06:37 07:55 Glucose 167 H POC Glucose 156 H OUTPATIENT ANTIDIABETIC REGIMEN: * n/a * A1c 6.3% 07/10/20, updated A1c pending ASSESSMENT: * 25 year old female with PMH PCOS, obesity, vit D deficiency, admitted with COVID-19 pna on Remdesivir and IV dexamethasone * Patient required 13 units of insulin yesterday to correct for high blood sugars due to steroids, begin NPH with IV steroids today to prevent hyperglycemia * Continue CF/CR PLAN FOR INPATIENT GLYCEMIC CONTROL: * Basal insulin * NPH 20 units SQ daily with IV Dexamethasone * Bolus insulin * NovoLog per scale ACHS or Q6hrs while NPO * Goal Range: Low 110 mg/dL - High 140 mg/dL * Correction Factor: 20 mg/dL/unit * Nutritional / Prandial insulin per carb ratio of 1 unit per 6 grams CHO consumed PLAN FOR DISCHARGE: * to be determined
[2021-01-17] MEDS: REMDESIVIR 100 MG in SODIUM CHLORIDE 0.9% 230 ML IV SCH (12:41)
[2021-01-17] MEDS: SODIUM CHLORIDE 0.9% 10ML FLUSH IV SCH (13:54)
--- NOTE | 2021-01-17 19:40 | Electrocardiogram Report ---
Test Reason : Blood Pressure : / mmHG Vent. Rate : 118 BPM Atrial Rate : 118 BPM P-R Int : 136 ms QRS Dur : 070 ms QT Int : 302 ms P-R-T Axes : 042 027 004 degrees QTc Int : 423 ms Sinus tachycardia Nonspecific T wave abnormality Abnormal ECG When compared with ECG of 15-JAN-2021 06:12, No significant change was found Confirmed by Patrick Santiago ([id number]) on 01/17/2021 7:40:24 PM Referred By: REFERRED SELF Confirmed By:Patrick Santiago
[2021-01-18 07:20] LABS: Estimated Average Glucose 146 mg/dl; Hemoglobin A1C 6.7 % (4.5-5.6)
[2021-01-18 07:39] LABS: Basophils # (auto) 0.01 K/uL (0-0.2); Basophils % (auto) 0.1 %; Hematocrit (blood only) 41.4 % (37-47); Immature Granulocytes # (auto) 0.04 K/uL (0.00-0.02); Immature Granulocytes % (auto) 0.4 %; Lymphocytes # (auto) 1.71 K/uL (1.2-3.4); Lymphocytes % (auto) 18.8 %; Mean Corpuscular Hemoglobin 29.6 pg (25-34); Mean Corpuscular Hgb Conc 33.8 g/dL (32-36); Mean Corpuscular Volume 87.5 fL (80-100); Mean Platelet Volume 10.7 fL (7.4-10.4); Monocytes # (auto) 0.47 K/uL (0.11-0.59); Monocytes % (auto) 5.2 %; Neutrophils # (auto) 6.87 K/uL (1.4-6.5); Neutrophils % (auto) 75.5 %; Platelet Count 209 K/uL (130-400); RDW Standard Deviation 41.9 fL (36.4-46.3); Red Blood Count 4.73 M/uL (4.2-5.4)
[2021-01-18 08:24] LABS: Albumin Level 2.9 gm/dl (3.4-5.0); BUN Creatinine Ratio 20.8 (10-20); C Reactive Protein 4.94 mg/dl (0-0.29); Calcium 8.9 mg/dl (8.5-10.1); Est GFR (African American) 143.6 ml/min; Est GFR (Non-African American) 123.9 ml/min; Potassium 4.1 mmol/L (3.5-5.1)
[2021-01-18 08:27] LABS: Albumin Globulin Ratio 0.7 (0.9-2); Bilirubin,Total 0.4 mg/dl (0.2-1); Globulin 4.1 gm/dl (2.5-4.0)
[2021-01-18] MEDS: dexAMETHasone 6 MG in SYRINGE 0 ML IV SCH (10:00)
[2021-01-18] MEDS: INSULIN ASPART 100 UNITS/ML 3 ML PEN SC SCH ×4 (10:00→21:30)
[2021-01-18] MEDS: INSULIN HUMAN NPH SC SCH (10:00)
[2021-01-18] MEDS: ENOXAPARIN INJ 40 MG/0.4 ML SYR SQ SCH ×2 (10:02→20:22)
[2021-01-18] MEDS: CHOLECALCIFEROL 1,000 UNITS 25 MCG TAB PO SCH (10:02)
[2021-01-18] MEDS: REMDESIVIR 100 MG in SODIUM CHLORIDE 0.9% 230 ML IV SCH (12:04)
[2021-01-18] MEDS: SODIUM CHLORIDE 0.9% 10ML FLUSH IV SCH (13:12)
--- NOTE | 2021-01-18 19:45 | XRay Report ---
XR chest 1V portable CLINICAL HISTORY: hypoxia COMPARISON STUDY: Chest CT January 15, 2021. Chest radiograph January 16, 2021. FINDINGS: No pneumothorax or pleural effusion is noted. Moderate multifocal airspace opacities within the lungs are noted. These have slightly improved since exam of January 16, 2021. Cardiac size is nor mal. Mediastinal contours are normal. There is no evidence for pulmonary edema. IMPRESSION: Slight improvement in pulmonary airspace opacities consistent with multifocal pneumonia. ACT 112: Negative or not required by law. Electronically signed by: Mion Ferreira M.D. 01/18/2021 7:44 PM
--- NOTE | 2021-01-18 22:05 | Hospitalist Progress Note ---
Date of Service January 18, 2021 Assessment & Plan (1) COVID-19: Plan: oxygen requirements are less today, very compliant with prone position down to 4-6L on her stomach continue dexamethasone 6mg IV daily, day 3 Remdesivir x 5 days, day 3 flutter valve, incentive spirometer cough syrup CRP improved to 4 from 11. ordered x ray of her chest (2) Hypoxia: Plan: Secondary to COVID-19 pneumonia currently she is improving, down to 4L from 7L this morning she is very compliant with prone positioning titrate down as tolerated consider low dose Lasix tomorrow to keep neg fluid balance (3) Vitamin D deficiency: Plan: Prior level 12.7 ng/ml in June One dose D2 50,000 units on admission, continue D3 1000 units daily (4) PCOS (polycystic ovarian syndrome): Plan: On no medication for this Plan: VTE prophylaxis - Lovenox 40 BID Diet - regular Disposition - admit to med/tele Admission and Anticipated Discharge Date Admission Date: January 16, 2021 Subjective Patient is proning. She reports feeling better today. Nurse feels she has fluid in her bases. Review of Systems Review of Systems: All systems reviewed & are unremarkable except as noted in HPI & below Physical Exam Physical Exam: General: well developed, well nourished, overweight Neck: supple, trachea midline, normal thyroid Lungs: some diffuse crackles in bases, normal respiratory effort, no accessory muscle use, no distress Heart: S1 and S2, tachycardic no murmur, peripheral pulses normal, capillary refill normal, no edema Abdomen: soft, NT, ND, + BS, no hepatomegaly, normal to percussion Extremities: normal in appearance, no cyanosis, no petechiae, strength is 5/5 bilaterally Neuro: awake, cooperative, moves all extremities, no focal motor deficits, CN II-XII intact, sensation in extremities intact, normal speech Skin: warm, dry, no rash, normal turgor Psych: Awake, alert oriented x 3 Results & Data Results & Data ([facility]) Vital Signs (Past 12 Hours) Vital Signs Temp Pulse Resp BP Pulse Ox 01/18/21 18:24 36.9 C 83 114/74 97 01/18/21 15:32 37.0 C 93 H 20 124/74 97 01/18/21 14:00 81 20 97 01/18/21 11:34 37.4 C 102 H 19 124/77 93 PG Care Time/CCT Total # of Minutes Spent Total Time Spent with Patient: Total time spent is greater than 50% in coordination of care (as documented) at patient's floor/unit and/or counseling patient: Coding Level of Care Code 26764 Subseq Hosp Care Lvl 3 Diagnoses COVID-19 U07.1 Hypoxia R09.02 Vitamin D deficiency E55.9 PCOS (polycystic ovarian syndrome) E28.2 Time Spent (min) 35
[2021-01-19 07:30] LABS: Basophils # (auto) 0.02 K/uL (0-0.2); Basophils % (auto) 0.3 %; Hematocrit (blood only) 40.4 % (37-47); Hemoglobin 13.7 g/dL (12.0-16.0); Immature Granulocytes # (auto) 0.09 K/uL (0.00-0.02); Immature Granulocytes % (auto) 1.2 %; Lymphocytes # (auto) 1.92 K/uL (1.2-3.4); Lymphocytes % (auto) 25.9 %; Mean Corpuscular Hemoglobin 29.6 pg (25-34); Mean Corpuscular Hgb Conc 33.9 g/dL (32-36); Mean Corpuscular Volume 87.3 fL (80-100); Mean Platelet Volume 10.6 fL (7.4-10.4); Monocytes # (auto) 0.54 K/uL (0.11-0.59); Monocytes % (auto) 7.3 %; Neutrophils # (auto) 4.84 K/uL (1.4-6.5); Neutrophils % (auto) 65.3 %; Platelet Count 228 K/uL (130-400); RDW Coefficient of Variation 12.8 % (11.5-14.5); Red Blood Count 4.63 M/uL (4.2-5.4); White Blood Count 7.41 K/uL (4.8-10.8)
[2021-01-19 08:06] LABS: Alanine Aminotransferase 32 U/L (12-78); Albumin Level 2.9 gm/dl (3.4-5.0); Aspartate Aminotransferase 18 U/L (15-37); BUN Creatinine Ratio 28.3 (10-20); Blood Urea Nitrogen 15 mg/dl (7-18); Calcium 8.8 mg/dl (8.5-10.1); Carbon Dioxide 29 mmol/L (21-32); Chloride 104 mmol/L (98-107); Creatinine Clr Calc Pharmacy 168.9 ml/min; Est GFR (African American) > 150.0 ml/min; Est GFR (Non-African American) 134.7 ml/min; Glucose 108 mg/dl (70-99); Potassium 4.2 mmol/L (3.5-5.1); Sodium 139 mmol/L (136-145)
[2021-01-19 08:09] LABS: Albumin Globulin Ratio 0.7 (0.9-2); Alkaline Phosphatase 78 U/L (45-117); Bilirubin,Total 0.3 mg/dl (0.2-1); Globulin 4.1 gm/dl (2.5-4.0)
[2021-01-19] MEDS: CHOLECALCIFEROL 1,000 UNITS 25 MCG TAB PO SCH (08:21)
[2021-01-19] MEDS: dexAMETHasone 6 MG in SYRINGE 0 ML IV SCH (08:21)
[2021-01-19] MEDS: INSULIN ASPART 100 UNITS/ML 3 ML PEN SC SCH ×4 (09:15→21:30)
[2021-01-19] MEDS: ENOXAPARIN INJ 40 MG/0.4 ML SYR SQ SCH ×2 (09:16→21:50)
[2021-01-19] MEDS: INSULIN HUMAN NPH SC SCH (09:16)
[2021-01-19] MEDS ORDERED: FUROSEMIDE 40 MG in SYRINGE 0 ML IV ONE (10:36)
[2021-01-19] MEDS ORDERED: FUROSEMIDE 40 MG/4 ML VIAL IV ONE (10:45)
--- NOTE | 2021-01-19 10:56 | Hospitalist Progress Note ---
Date of Service January 19, 2021 Assessment & Plan (1) COVID-19: Plan: oxygen requirements are less today, very compliant with prone position down to 4-6L on her stomach continue dexamethasone 6mg IV daily, day 4 Remdesivir x 5 days, day 4 flutter valve, incentive spirometer cough syrup CRP improved to 4 from 11. Nasal cannula is 8 liters. (2) Hypoxia: Plan: Secondary to COVID-19 pneumonia currently she is improving, down to 4L from 7L this morning she is very compliant with prone positioning titrate down as tolerated consider low dose Lasix tomorrow to keep neg fluid balance (3) Vitamin D deficiency: Plan: Prior level 12.7 ng/ml in June One dose D2 50,000 units on admission, continue D3 1000 units daily (4) PCOS (polycystic ovarian syndrome): Plan: On no medication for this Plan: VTE prophylaxis - Lovenox 40 BID Diet - regular Disposition - admit to med/tele Admission and Anticipated Discharge Date Admission Date: January 16, 2021 Subjective 25 yo female reports feeling about the same. She does report having a dry cough. Updated mother. Review of Systems Review of Systems: All systems reviewed & are unremarkable except as noted in HPI & below Physical Exam Physical Exam: General: well developed, well nourished, overweight Neck: supple, trachea midline, normal thyroid Lungs: some diffuse crackles in bases, normal respiratory effort, no accessory muscle use, no distress Heart: S1 and S2, tachycardic no murmur, peripheral pulses normal, capillary refill normal, no edema Abdomen: soft, NT, ND, + BS, no hepatomegaly, normal to percussion Extremities: normal in appearance, no cyanosis, no petechiae, strength is 5/5 bilaterally Neuro: awake, cooperative, moves all extremities, no focal motor deficits, CN II-XII intact, sensation in extremities intact, normal speech Skin: warm, dry, no rash, normal turgor Psych: Awake, alert oriented x 3 Results & Data Results & Data ([facility]) Vital Signs (Past 12 Hours) Vital Signs Temp Pulse Pulse Resp BP Pulse Ox 01/19/21 07:46 36.8 C 78 20 110/67 96 01/19/21 03:26 36.7 C 63 20 123/73 96 01/19/21 01:52 53 L 01/18/21 23:51 36.7 C 72 20 121/68 95 PG Care Time/CCT Total # of Minutes Spent Total Time Spent with Patient: Total time spent is greater than 50% in coordination of care (as documented) at patient's floor/unit and/or counseling patient: Coding Level of Care Code 43311 Subseq Hosp Care Lvl 3 Diagnoses COVID-19 U07.1 Hypoxia R09.02 Vitamin D deficiency E55.9 PCOS (polycystic ovarian syndrome) E28.2 Time Spent (min) 35
[2021-01-19] MEDS: REMDESIVIR 100 MG in SODIUM CHLORIDE 0.9% 230 ML IV SCH (12:30)
[2021-01-19] MEDS: SODIUM CHLORIDE 0.9% 10ML FLUSH IV SCH (14:10)
[2021-01-20 07:35] LABS: Hematocrit (blood only) 39.5 % (37-47); Hemoglobin 13.7 g/dL (12.0-16.0); Mean Corpuscular Hemoglobin 29.6 pg (25-34); Mean Corpuscular Hgb Conc 34.7 g/dL (32-36); Mean Corpuscular Volume 85.3 fL (80-100); Mean Platelet Volume 10.4 fL (7.4-10.4); Platelet Count 272 K/uL (130-400); RDW Coefficient of Variation 12.6 % (11.5-14.5); RDW Standard Deviation 39.7 fL (36.4-46.3); Red Blood Count 4.63 M/uL (4.2-5.4); White Blood Count 8.94 K/uL (4.8-10.8)
[2021-01-20 08:09] LABS: BUN Creatinine Ratio 32.9 (10-20); Calcium 8.7 mg/dl (8.5-10.1); Creatinine Clr Calc Pharmacy 136.3 ml/min; Est GFR (African American) 148.1 ml/min; Est GFR (Non-African American) 127.8 ml/min; Potassium 4.1 mmol/L (3.5-5.1)
[2021-01-20 08:12] LABS: Albumin Globulin Ratio 0.7 (0.9-2); Bilirubin,Total 0.3 mg/dl (0.2-1)
[2021-01-20 08:14] LABS: ALC (manual) 2.17 K/uL (1.2-3.4); ANC (manual) 6.14 K/uL (1.4-6.5); Lymphocytes # (manual) 2.17 K/uL (1.2-3.4); Lymphocytes % (manual) 24.3 %; Metamyelocytes # (manual) 0.08 K/uL (0-0); Metamyelocytes % (manual) 0.9 %; Monocytes # (manual) 0.31 K/uL (0.11-0.59); Monocytes % (manual) 3.5 %; Myelocytes # (manual) 0.23 K/uL (0-0); Myelocytes % (manual) 2.6 %; Neutrophils # (manual) 6.14 K/uL (1.4-6.5); Neutrophils % (manual) 68.7 %
[2021-01-20] MEDS: dexAMETHasone 6 MG in SYRINGE 0 ML IV SCH (08:58)
[2021-01-20] MEDS: CHOLECALCIFEROL 1,000 UNITS 25 MCG TAB PO SCH (08:58)
[2021-01-20] MEDS: ENOXAPARIN INJ 40 MG/0.4 ML SYR SQ SCH ×2 (08:58→20:51)
--- NOTE | 2021-01-20 09:46 | Pharmacy Report ---
Pharmacy Glycemic Short Note 2 - Date of Service January 20, 2021 - Glycemic Short BSG Results (Last 24 hours): 01/19/21 01/19/21 01/19/21 11:44 16:15 20:39 Glucose POC Glucose 225 H 183 H 151 H 01/20/21 01/20/21 07:06 07:44 Glucose 106 H POC Glucose 97 OUTPATIENT ANTIDIABETIC REGIMEN: * N/a * A1c = 6.7% (01/17/21) ASSESSMENT: 01/20: * Leslie received 57 units of insulin yesterday (20 units basal + 37 units bolus) * BSGs were okay: [phone] mg/dL * Fasting BSG was excellent at 97 mg/dL this AM * No changes necessary today 01/17: * 25 year old female with PMH PCOS, obesity, vit D deficiency, admitted with COVID-19 pna on Remdesivir and IV dexamethasone * Patient required 13 units of insulin yesterday to correct for high blood sugars due to steroids, begin NPH with IV steroids today to prevent hyperglycemia * Continue CF/CR PLAN FOR INPATIENT GLYCEMIC CONTROL: * Basal insulin * NPH 20 units SC daily with IV Dexamethasone * Bolus insulin * NovoLog per scale ACHS or Q6hrs while NPO * Goal Range: Low 110 mg/dL - High 140 mg/dL * Correction Factor: 15 mg/dL/unit * Nutritional / Prandial insulin per carb ratio of 1 unit per 5 grams CHO consumed PLAN FOR DISCHARGE: * HbA1c was 6.7% from this admission. Ideally, goal HbA1c for this patient given her age would be less than 6.5%. * Metformin should be started at the time type 2 diabetes is diagnosed unless there are contraindications. Metformin is effective and safe, is inexpensive, and may reduce risk of cardiovascular events and . * B12 supplementation may be necessary with senior care metformin use * FDA has revised the label for metformin to reflect its safety in patients with eGFR 30 mL/min or above * Recommend starting: Metformin XR 500mg PO daily with evening meal. Typically the XR formulation of metformin is better tolerated than the immediate release formulation. Continue to titrate metformin dosing upwards as recommended. Dosage increases should be made in increments of 500 mg weekly, up to 2,000 mg/day PO, given in divided doses. Doses above 2000 mg/day may be better tolerated if divided and given 3 times per day with meals. Max: 2,550 mg/day PO, in divided doses * Support Patient Self-Management * Healthy Lifestyle (diet, exercise, and smoking cessation) * Disease self-management (SMBG) * Prevention of complications (BP, Lipid goals, Immunizations) * Consider outpatient Diabetes Self-Management Education & Support
[2021-01-20] MEDS: INSULIN ASPART 100 UNITS/ML 3 ML PEN SC SCH ×4 (10:06→20:56)
[2021-01-20] MEDS: INSULIN HUMAN NPH SC SCH (10:06)
[2021-01-20] MEDS: SODIUM CHLORIDE 0.9% 10ML FLUSH IV SCH (12:37)
[2021-01-20] MEDS: REMDESIVIR 100 MG in SODIUM CHLORIDE 0.9% 230 ML IV SCH (12:37)
--- NOTE | 2021-01-20 20:51 | Hospitalist Progress Note ---
Date of Service January 20, 2021 Assessment & Plan (1) COVID-19: Plan: oxygen requirements are less today, very compliant with prone position down to 4-6L on her stomach continue dexamethasone 6mg IV daily, day 5 Remdesivir x 5 days, completed flutter valve, incentive spirometer cough syrup CRP improved to 4 from 11. Nasal cannula is now on 2-3 liters. (2) Hypoxia: Plan: Secondary to COVID-19 pneumonia currently she is improving, down to 4L from 7L this morning she is very compliant with prone positioning titrate down as tolerated consider low dose Lasix tomorrow to keep neg fluid balance (3) Vitamin D deficiency: Plan: Prior level 12.7 ng/ml in June One dose D2 50,000 units on admission, continue D3 1000 units daily (4) PCOS (polycystic ovarian syndrome): Plan: On no medication for this Plan: VTE prophylaxis - Lovenox 40 BID Diet - regular Disposition - admit to med/tele Admission and Anticipated Discharge Date Admission Date: January 16, 2021 Subjective Patient reports feeling well. She has been proning. Review of Systems Review of Systems: All systems reviewed & are unremarkable except as noted in HPI & below Physical Exam Physical Exam: General: well developed, well nourished, overweight Neck: supple, trachea midline, normal thyroid Lungs: some diffuse crackles in bases, normal respiratory effort, no accessory muscle use, no distress Heart: S1 and S2, tachycardic no murmur, peripheral pulses normal, capillary refill normal, no edema Abdomen: soft, NT, ND, + BS, no hepatomegaly, normal to percussion Extremities: normal in appearance, no cyanosis, no petechiae, strength is 5/5 bilaterally Neuro: awake, cooperative, moves all extremities, no focal motor deficits, CN II-XII intact, sensation in extremities intact, normal speech Skin: warm, dry, no rash, normal turgor Psych: Awake, alert oriented x 3 Results & Data Results & Data ([facility]) Vital Signs (Past 12 Hours) Vital Signs Temp Pulse Pulse Resp BP BP Pulse Ox 01/20/21 19:09 36.9 C 93 H 18 127/70 96 01/20/21 14:36 36.9 C 71 18 107/78 95 01/20/21 11:12 36.4 C L 96 H 19 101/82 91 01/20/21 09:00 55 L PG Care Time/CCT Total # of Minutes Spent Total Time Spent with Patient: Total time spent is greater than 50% in coordination of care (as documented) at patient's floor/unit and/or counseling patient: Coding Level of Care Code 60891 Subseq Hosp Care Lvl 2 Diagnoses COVID-19 U07.1 Hypoxia R09.02 Vitamin D deficiency E55.9 PCOS (polycystic ovarian syndrome) E28.2
[2021-01-21] MEDS ORDERED: INSULIN HUMAN NPH SC SCH (09:00)
[2021-01-21 09:14] LABS: Albumin Level 2.9 gm/dl (3.4-5.0); BUN Creatinine Ratio 28.6 (10-20); Calcium 8.7 mg/dl (8.5-10.1); Creatinine Clr Calc Pharmacy 134.4 ml/min; Est GFR (African American) 147.3 ml/min; Est GFR (Non-African American) 127.1 ml/min
[2021-01-21 09:17] LABS: Albumin Globulin Ratio 0.7 (0.9-2); Bilirubin,Total 0.4 mg/dl (0.2-1); Total Protein 6.9 gm/dl (6.4-8.2)
[2021-01-21] MEDS: dexAMETHasone 6 MG in SYRINGE 0 ML IV SCH (09:19)
[2021-01-21] MEDS: CHOLECALCIFEROL 1,000 UNITS 25 MCG TAB PO SCH (09:20)
[2021-01-21] MEDS: ENOXAPARIN INJ 40 MG/0.4 ML SYR SQ SCH (09:20)
[2021-01-21] MEDS: INSULIN ASPART 100 UNITS/ML 3 ML PEN SC SCH (09:32)
--- NOTE | 2021-01-21 09:48 | Pharmacy Report ---
Pharmacy Glycemic Short Note 2 - Date of Service January 21, 2021 - Glycemic Short BSG Results (Last 24 hours): 01/20/21 01/20/21 01/20/21 11:13 16:22 20:28 Glucose POC Glucose 222 H 172 H 219 H 01/21/21 01/21/21 07:44 08:10 Glucose 84 POC Glucose 80 OUTPATIENT ANTIDIABETIC REGIMEN: * N/a * A1c = 6.7% (01/17/21) ASSESSMENT: 01/21: * Leslie received a total of 61 units of insulin yesterday (20 units basal + 41 units bolus) * BSGs remained uncontrolled: [phone] mg/dL * Fasting BSG well controlled at 80 mg/dL this AM * BSGs continue to trend upwards throughout the day while fastings are trending downwards. * Unlikely that NPH is cause of fasting BSGs trending down is NPH given patient's renal function and body habitus. However, given steroid administration in the AM, an insufficient NPH is likely contributing to trend upward in postprandial BSGs. Therefore, will increase NPH dose this morning. * Could be that patient's endogenous insulin production overnight is contributing to trend downward in fasting BSGs. Therefore, will loosen Novolog parameters at bedtime to provide less insulin and prevent hypoglycemia. 01/20: * Leslie received 57 units of insulin yesterday (20 units basal + 37 units bolus) * BSGs were okay: [phone] mg/dL * Fasting BSG was excellent at 97 mg/dL this AM * No changes necessary today 01/17: * 25 year old female with PMH PCOS, obesity, vit D deficiency, admitted with COVID-19 pna on Remdesivir and IV dexamethasone * Patient required 13 units of insulin yesterday to correct for high blood sugars due to steroids, begin NPH with IV steroids today to prevent hyperglycemia * Continue CF/CR PLAN FOR INPATIENT GLYCEMIC CONTROL: * Basal insulin - increased * NPH 30 units SC daily with IV Dexamethasone * Bolus insulin - loosen CF/CR at bedtime * NovoLog per scale ACHS or Q6hrs while NPO * Goal Range: Low 110 mg/dL - High 140 mg/dL * Breakfast/Lunch/Dinner: Correction Factor: 12 mg/dL/unit; Nutritional / Prandial insulin per carb ratio of 1 unit per 4 grams CHO consumed * Bedtime: Correction Factor: 20 mg/dL/unit; Nutritional / Prandial insulin per carb ratio of 1 unit per 5 grams CHO consumed PLAN FOR DISCHARGE: * HbA1c was 6.7% from this admission. Ideally, goal HbA1c for this patient given her age would be less than 6.5%. * Metformin should be started at the time type 2 diabetes is diagnosed unless there are contraindications. Metformin is effective and safe, is inexpensive, and may reduce risk of cardiovascular events and . * B12 supplementation may be necessary with watermaster metformin use * FDA has revised the label for metformin to reflect its safety in patients with eGFR 30 mL/min or above * Recommend starting: Metformin XR 500mg PO daily with evening meal. Typically the XR formulation of metformin is better tolerated than the immediate release formulation. Continue to titrate metformin dosing upwards as recommended. Dosage increases should be made in increments of 500 mg weekly, up to 2,000 mg/day PO, given in divided doses. Doses above 2000 mg/day may be better tolerated if divided and given 3 times per day with meals. Max: 2,550 mg/day PO, in divided doses * Support Patient Self-Management * Healthy Lifestyle (diet, exercise, and smoking cessation) * Disease self-management (SMBG) * Prevention of complications (BP, Lipid goals, Immunizations) * Consider outpatient Diabetes Self-Management Education & Support
--- NOTE | 2021-01-21 11:02 | Discharge Summary ---
Date of Service January 21, 2021 Admission HPI Per Admitting Provider Luis Wiseman is a 25 year old female with PCOS who presents to the ER with hypoxia and shortness of breath. COVID-19 symptoms started with stomach upset and diarrhea on January 08. Currently on Day 9 of illness. Diarrhea now resolved. Cough is now more productive, ongoing fever and chills, headache and progressively worsening shortness of breath on exertion. She started to loose taste and smell 2 days ago. She was initially seen at urgent care and diagnosed January 10 and was reportedly started on azithromycin and prednisone starting on Monday. She was seen in the ER yesterday and was told to s top taking these but given 1L NSS bolus and albuterol. She was discharged as O2 sats 97% on room air. She returns today as O2 sats decreased to mid 80s at rest. She was referred to medicine for admission and ongoing management of COVID-19 pneumonia and hypoxia. Principal Diagnosis COVID 19 Discharge Exam General: well developed, well nourished, overweight Neck: supple, trachea midline, normal thyroid Lungs: CTA B/L normal respiratory effort, no accessory muscle use, no distress Heart: S1 and S2, tachycardic no murmur, peripheral pulses normal, capillary refill normal, no edema Abdomen: soft, NT, ND, + BS, no hepatomegaly, normal to percussion Extremities: normal in appearance, no cyanosis, no petechiae, strength is 5/5 bilaterally Neuro: awake, cooperative, moves all extremities, no focal motor deficits, CN II-XII intact, sensation in extremities intact, normal speech Skin: warm, dry, no rash, normal turgor Psych: Awake, alert oriented x 3 Discharge Data Allergies Allergy/AdvReac Type Severity Reaction Status Date / Time No Known Allergies Allergy Verified 01/16/21 10:48 Hospital Course (1) COVID-19: oxygen requirements are less today, very compliant with prone position Patient required a peak level of 9 liters nasal cannula complete dexamethasone 6mg for 10 days Remdesivir x 5 days, completed flutter valve, incentive spirometer cough syrup will discharge on room air Patient passed 2 step. (2) Hypoxia: Secondary to COVID-19 pneumonia currently she is improving, down to 4L from 7L this morning she is very compliant with prone positioning titrate down as tolerated consider low dose Lasix tomorrow to keep neg fluid balance (3) Vitamin D deficiency: Prior level 12.7 ng/ml in June One dose D2 50,000 units on admission, continue D3 1000 units daily (4) PCOS (polycystic ovarian syndrome): On no medication for this VTE prophylaxis - Lovenox 40 BID Diet - regular Total Time Total Time Spent Total Time Spent (In Minutes): 32 Discharge Plan Discharge Items Patient Disposition: Home - Self-Care Reason For Visit: COVID-19, HYPOXIA Discharge Diagnosis: COVID-19 Activity: Resume your previous activity Non-emergency contact: Primary Care Provider Call non-emergency contact if: you have any medication questions Follow-up/Referrals: Marni Haley DO [Primary Care Provider] - 01/26/21 11:00 am (PHONE CALL APPOINTMENT WITH LUIS CORTES 01/26 AT 11AM) Diet: Carb Consistent or DM2 Addtl Attending Provider Instructions: You have been hospitalized for an acute medical problem. During your stay at [facility], we have made an effort to correct the problem that brought you to the hospital while keeping you as comfortable as possible. Medications were used to bring your condition under control and your discharge instructions will include directions for any medications you should take after leaving the hospital. Please make sure you see your Primary Care Provider as part of your follow up plan. Recommend followup with PCP in 1 week Recommend not being overly active over the course of the weekend, but try to slowly increase activity. You may return to work on Monday as you will be 14 days past your COVID illness. Please call your place of occupation prior to see if they agree. Pending Studies at Discharge: No Stand-Alone Forms: My [facility], Work/School Release, Smoking Cessation Medications and DC Order Prescriptions: New vitamin [id number] acid 500-400 mcg tablet 1 tab PO DAILY Qty: 30 RF: 0 metformin 500 mg tablet extended release 24hr 500 mg PO PM Qty: 30 RF: 0 dexamethasone 6 mg tablet 6 mg PO DAILY Qty: 4 RF: 0 Discharge Orders: Discharge Order (Routine); Ordered 01/21/21 Ordered By: Dillon Mray/Other Patient Handouts: High Blood Sugar (Hyperglycemia), Hypoglycemia (Low Blood Sugar), Exercise: Why Fitness Matters, Diabetes: Meal Planning, Type 2 Diabetes Admission Data Admit Date/Time: 01/16/21 11:02 Attending Provider: Dillon Kasper Admit Provider: Jeff Mosqueda Primary Care Provider: Marni Haley Other Interventions: Discharge Summary Assessment (RN) Last Done: 01/21/21 11:16 Coding Level of Care Code D/C DAY MANAGEMENT >30 MINS Diagnoses COVID-19 U07.1 Hypoxia R09.02 Vitamin D deficiency E55.9 PCOS (polycystic ovarian syndrome) E28.2
[2021-01-21] MEDS ORDERED: INSULIN ASPART 100 UNITS/ML 3 ML PEN SC SCH ×2 (11:30→21:00)
== END 2021-01-21 12:05 | disposition home or self-care (01) | DRG 177 ==
LOC: ED 09:10 → 2S 13:48 → SUATTDRO 13:56